=== PATIENT | female | born 1955 | race Caucasian/White ===

== ENCOUNTER 2020-08-15 17:33 | Emergency (ER) | payer MEDICARE, OTHER ==
[~2020-08-15 17:33] MED LIST: BACTRIM DS TAB1 EACH PO; CIPRO500 MG PO; ONDANSETRON ODT4 MG SL; PULMICORT FLE180 MCG INH
== END 2020-08-15 21:14 | disposition home or self-care (01) ==
LOC: FER 17:33
DX: G43.709 Chronic migraine without aura, not intractable, without status migrainosus (principal); E11.9 Type 2 diabetes mellitus without complications; I10 Essential (primary) hypertension; F17.290 Nicotine dependence, other tobacco product, uncomplicated; Z79.84 Long term (current) use of oral hypoglycemic drugs
CPT/HCPCS: J0780; J1100; J1200; J7030

== ENCOUNTER 2021-02-26 14:00 | Emergency (ER) | payer OTHER ==
[2021-02-26 16:43] LABS: BILIRUBIN NEGATIVE (NEGATIVE); BLOOD NEGATIVE Ery/uL (NEGATIVE); CLARITY CLEAR (CLEAR); COLOR YELLOW (YELLOW); GLUCOSE (U) NORMAL (NORMAL); LEUKOCYTES NEGATIVE Leu/uL (NEGATIVE); NITRITE NEGATIVE (NEGATIVE); PROTEIN NEGATIVE (NEGATIVE); UROBILINOGEN 0.2 mg/dL (0.2-1.0); pH 6.5 (5.0-9.0)
[2021-02-26 16:51] LABS: BASOPHIL 0.4 % (0-2); EOSINOPHIL 4.4 % (0-7); HCT 43.9 % (37.0-47.0); HGB 14.1 g/dl (12.5-16.0); LYMPHOCYTE 26.8 % (15-48); MCH 32.2 pg (25.0-31.0); MCHC 32.1 g/dL (32.0-36.0); MCV 100.2 fL (78.0-100.0); MONOCYTE 8.1 % (0-12); MPV 9.7 fL (6.0-9.5); NEUTROPHIL 59.9 % (41-80); NRBC 0; PLT 153 K/uL (150-400); RBC 4.38 M/uL (4.20-5.40); RDW 12.6 % (11.5-14.0); WBC 7.8 K/uL (4.0-10.5)
[2021-02-26 17:05] LABS: ALBUMIN 3.4 g/dL (3.4-5.0); BILIRUBIN - TOTAL 0.4 mg/dL (0.2-1.0); BUN/CREAT RATIO (CALC) 14.9 RATIO; CREATININE 1.54 mg/dL (0.51-0.95); GLOBULIN (CALCULATION) 3.6 g/dL; POTASSIUM 3.7 mmol/L (3.5-5.1)
[2021-02-26] MEDS ORDERED: DITROPAN5 MG PO (17:33)
[2021-02-26] MEDS ORDERED: NORCO 5-325 TA1 EACH PO (17:37)
[2021-02-26] MEDS ORDERED: ONDANSETRON ODT4 MG PO (17:53)
== END 2021-02-26 17:56 | disposition home or self-care (01) ==
LOC: FER 14:00
PROVIDERS: Internal Medicine
DX: R10.30 Lower abdominal pain, unspecified (principal); E11.22 Type 2 diabetes mellitus with diabetic chronic kidney disease; N18.30 Chronic kidney disease, stage 3 unspecified; Z87.891 Personal history of nicotine dependence
CPT/HCPCS: 36415; 80053; 81003; 85025; Q0162

== ENCOUNTER 2021-04-23 15:09 | Emergency (ER) | payer OTHER ==
[~2021-04-23 15:09] MED LIST changes: +DITROPAN5 MG PO; +NORCO 5-325 TA1 EACH PO; +ONDANSETRON ODT4 MG PO
[2021-04-23 17:09] LABS: BASOPHIL 0.2 % (0-2); EOSINOPHIL 6.3 % (0-7); HCT 40.1 % (37.0-47.0); HGB 13.4 g/dl (12.5-16.0); MCH 32.4 pg (25.0-31.0); MCHC 33.4 g/dL (32.0-36.0); MCV 97.1 fL (78.0-100.0); MONOCYTE 6.9 % (0-12); MPV 10.1 fL (6.0-9.5); NEUTROPHIL 70.2 % (41-80); NRBC 0; PLT 165 K/uL (150-400); RBC 4.13 M/uL (4.20-5.40); RDW 13.2 % (11.5-14.0); WBC 8.2 K/uL (4.0-10.5)
[2021-04-23 17:30] LABS: ALBUMIN 3.4 g/dL (3.4-5.0); BILIRUBIN - TOTAL 0.5 mg/dL (0.2-1.0); BUN/CREAT RATIO (CALC) 14.3 RATIO; C-REACTIVE PROTEIN 1.3 mg/dL (<=0.90); CREATININE 1.33 mg/dL (0.51-0.95); GLOBULIN (CALCULATION) 3.2 g/dL; POTASSIUM 3.7 mmol/L (3.5-5.1); TOTAL PROTEIN 6.6 g/dL (6.4-8.2)
[2021-04-23 17:31] LABS: BILIRUBIN NEGATIVE (NEGATIVE); BLOOD NEGATIVE Ery/uL (NEGATIVE); CLARITY CLEAR (CLEAR); COLOR YELLOW (YELLOW); GLUCOSE (U) NORMAL (NORMAL); LEUKOCYTES NEGATIVE Leu/uL (NEGATIVE); NITRITE NEGATIVE (NEGATIVE); PROTEIN NEGATIVE (NEGATIVE); UROBILINOGEN 0.2 mg/dL (0.2-1.0)
[2021-04-23 17:36] LABS: LACTIC ACID 1.4 mmol/L (0.4-1.9)
[2021-04-23 18:40] LABS: CORONAVIRUS 2019 SARS-COV-2 NEGATIVE (NEGATIVE); INFLUENZA A NAA NEGATIVE (NEGATIVE)
[2021-04-23] MEDS ORDERED: COLESTID 1GM TAB1 GM PO (19:06)
== END 2021-04-23 19:30 | disposition home or self-care (01) ==
LOC: FER 15:09
PROVIDERS: Internal Medicine
DX: R10.30 Lower abdominal pain, unspecified (principal); R19.7 Diarrhea, unspecified; E11.9 Type 2 diabetes mellitus without complications; Z20.822 Contact with and (suspected) exposure to COVID-19
CPT/HCPCS: 36415; 80053; 81003; 83605; 83690; 85025; 86140; J7030; U0002